=== PATIENT | male | born 1985 | race Caucasian/White ===

== ENCOUNTER 2024-08-29 07:41 | Inpatient (IN) | payer OTHER ==
[~2024-08-29] VITALS: Ht 180.3 cm; Wt 66.8 kg
[2024-08-29] MEDS: IV NS 0.9% 1,000 ML BAG IV ONE (08:40)
[2024-08-29] MEDS: PIPERACILLIN /TAZOBACTAM 3.375 G in IV D5W 50 ML IV ONE (08:42)
[2024-08-29 08:52] LABS: PLATELET COUNT (AUTO) 682 K/uL (150-450); RED BLOOD CELL COUNT(AUTO) 3.68 MIL/uL (4.5-6.0); RED CELL DISTRIBUTION WIDTH 12.6 % (11.5-15.0); WHITE BLOOD COUNT (AUTO) 16.1 K/uL (4.3-11.0)
[2024-08-29 09:08] LABS: LACTIC ACID 1.5 mmol/L (0.4-2.0)
[2024-08-29 09:09] LABS: INR 1.01 (0.91-1.10)
[2024-08-29] MEDS ORDERED: IBUP-1955 PO (09:09)
[2024-08-29] MEDS ORDERED: ACET-1951 PO (09:09)
[2024-08-29 09:15] LABS: CALCIUM, SERUM 8.9 mg/dL (8.5-10.1); CREATININE 0.7 mg/dL (0.6-1.3); SODIUM SERUM 128.0 mmol/L (136-145); UREA NITROGEN, BLOOD 6.0 mg/dL (7-18)
[2024-08-29] MEDS: VANCOMYCIN 1 GM in IV D5W 250 ML IV ONE (09:50)
[2024-08-29 10:03] LABS: APPEARANCE,URINE CLEAR (CLEAR); BLOOD, URINE NEGATIVE Ery/uL (NEGATIVE); LEUKOCYTE ESTERASE ,URINE NEGATIVE (NEGATIVE); NITRITE, URINE NEGATIVE (NEGATIVE); UGLUCOSE 3+ mg/dL (NEGATIVE)
[2024-08-29 10:09] LABS: ADD URINE CULTURE NO; SQUAMOUS EPITHELIAL CELL,UR None Seen /HPF (None Seen)
[2024-08-29] MEDS ORDERED: MAGNESIUM HYDROXIDE 30 ML UDC PO PRN (11:30)
[2024-08-29] MEDS ORDERED: Z GUARD REMEDY 4 OZ OINT TP PRN (11:30)
[2024-08-29] MEDS ORDERED: DOSING PER PHARMACY-VANCOMYCIN IV XX PRN (11:30)
[2024-08-29] MEDS ORDERED: DEXTROSE 50%-WATER 50 ML DISP.SYRIN IV PRN ×3 (11:30→22:30)
[2024-08-29] MEDS ORDERED: DOSING PER PHARMACY-ZOSYN IV 1 EA EA XX PRN (11:30)
[2024-08-29] MEDS: BLOOD SUGAR DIAGNOSTIC 1 EACH STRIP IN SCH ×2 (11:54→22:36)
[2024-08-29] MEDS: INSULIN REGULAR, HUMAN 100 UNIT/ML 3 ML VIAL SQ PRN (11:56)
[2024-08-29] MEDS: INSULIN GLARGINE, 100 UNIT/ML CARTRIDGE SQ SCH ×2 (12:04→22:37)
[2024-08-29 12:32] LABS: ASPARTATE AMINOTRANSFERASE 12.0 U/L (15-37); TOTAL PROTEIN, SERUM 7.8 g/dL (6.4-8.2)
[2024-08-29] MEDS: ZOSYN IVPB 3.375 G in IV D5W 50ml IV SCH (13:50)
[2024-08-29] MEDS: IV NS 0.9% 1,000 ML IV PRN (13:55)
[2024-08-29] MEDS: ONDANSETRON HCL/PF 4 MG/2 ML VIAL IVP PRN (15:35)
[2024-08-29 16:13] VITALS: BP 115/82; TEMP 99.9; O2SAT 99
[2024-08-29] MEDS ORDERED: CT SWABBABLE VALVE TRANS SET 1 EA INFUS.SET MC ONE (16:42)
[2024-08-29] MEDS ORDERED: IOHEXOL-300 100 ML VIAL IV ONE (16:42)
[2024-08-29] MEDS ORDERED: IV NS 0.9% 250 ML IV ONE (16:42)
[2024-08-29] MEDS ORDERED: INSULIN REGULAR, HUMAN 100 UNIT/ML 3 ML VIAL SQ PRN (18:00)
[2024-08-29] MEDS ORDERED: *INSULIN REGULAR(HUMULIN R)HUM 100 UNIT/ML VIAL SQ PRN (18:00)
[2024-08-29] MEDS: VANCOMYCIN HCL 1.25 GM in IV D5W 250 ML IV SCH (18:42)
[2024-08-29] MEDS: INSULIN REGULAR, HUMAN 100 UNIT/ML 10 ML VIAL SQ ONE (18:45)
[2024-08-29] MEDS: MAG HYDROX/AL HYDROX/SIMETH 30 ML UDC PO PRN (19:28)
[2024-08-29] MEDS: ACETAMINOPHEN 325 MG TABLET PO PRN (20:13)
[2024-08-29] MEDS ORDERED: LIDOCAINE 1%-EPI 1:100,000 20 ML VIAL ONE (20:48)
[2024-08-29] MEDS: HYDROMORPHONE INJ 2 MG/ML DISP.SYRIN IV ONE (21:38)
[2024-08-29] MEDS ORDERED: BLOOD SUGAR DIAGNOSTIC 1 EACH STRIP VI SCH (22:00)
[2024-08-29] MEDS: *INSULIN REGULAR(HUMULIN R)HUM 100 UNIT/ML VIAL SQ PRN (22:39)
[2024-08-30] MEDS: INSULIN REGULAR, HUMAN 100 UNIT/ML 10 ML VIAL SQ SCH ×3 (06:29→17:07)
[2024-08-30 07:18] LABS: PLATELET COUNT (AUTO) 634 K/uL (150-450); RED BLOOD CELL COUNT(AUTO) 3.27 MIL/uL (4.5-6.0); RED CELL DISTRIBUTION WIDTH 12.6 % (11.5-15.0); WHITE BLOOD COUNT (AUTO) 12.9 K/uL (4.3-11.0)
[2024-08-30 07:41] LABS: CALCIUM, SERUM 8.0 mg/dL (8.5-10.1); CREATININE 0.4 mg/dL (0.6-1.3); PHOSPHORUS 2.4 mg/dL (2.5-4.9); SODIUM SERUM 131.0 mmol/L (136-145); UREA NITROGEN, BLOOD 5.0 mg/dL (7-18)
[2024-08-30 08:00] VITALS: BP 100/67; TEMP 99.3; O2SAT 98
[2024-08-30 08:31] LABS: LDL 45.0 mg/dL (0-99)
[2024-08-30] MEDS: HYDROCODONE/APAP 5/325MG TABLET PO PRN (11:29)
[2024-08-30] MEDS: INSULIN REGULAR, HUMAN 100 UNIT/ML 3 ML VIAL SQ PRN (11:50)
[2024-08-30] MEDS: INSULIN REGULAR, HUMAN 100 UNIT/ML 10 ML VIAL SQ ONE (15:16)
[2024-08-30 16:00] VITALS: BP 100/68; TEMP 98.2; O2SAT 94
[2024-08-30] MEDS: K PHOS NEUTRAL 250 MG TABLET PO ONE (16:11)
[2024-08-30 20:00] VITALS: BP 101/72; TEMP 98.2; O2SAT 100
[2024-08-31] MEDS: HYDROCODONE/APAP 10/325MG TABLET PO PRN (02:18)
[2024-08-31 06:45] LABS: PLATELET COUNT (AUTO) 627 K/uL (150-450); RED BLOOD CELL COUNT(AUTO) 3.27 MIL/uL (4.5-6.0); RED CELL DISTRIBUTION WIDTH 12.5 % (11.5-15.0); WHITE BLOOD COUNT (AUTO) 7.6 K/uL (4.3-11.0)
[2024-08-31 07:01] LABS: CALCIUM, SERUM 8.1 mg/dL (8.5-10.1); CREATININE 0.6 mg/dL (0.6-1.3); PHOSPHORUS 3.8 mg/dL (2.5-4.9); SODIUM SERUM 134.0 mmol/L (136-145); UREA NITROGEN, BLOOD 7.0 mg/dL (7-18)
[2024-08-31 07:30] VITALS: BP 102/68; TEMP 98.1; O2SAT 98
[2024-08-31] MEDS ORDERED: IOHEXOL-300 100 ML VIAL IV ONE (14:08)
[2024-08-31] MEDS ORDERED: IV NS 0.9% 250 ML IV ONE (14:08)
[2024-08-31 20:00] VITALS: BP 106/74; TEMP 98.2; O2SAT 97
[2024-08-31 20:28] VITALS: BP 106/74; TEMP 98.2; O2SAT 97
[2024-08-31] MEDS: MUPIROCIN OINT 2% 22 GM TUBE TP SCH (21:30)
[2024-09-01 07:07] LABS: CALCIUM, SERUM 8.3 mg/dL (8.5-10.1); CREATININE 0.6 mg/dL (0.6-1.3); PHOSPHORUS 3.5 mg/dL (2.5-4.9); SODIUM SERUM 132.0 mmol/L (136-145); UREA NITROGEN, BLOOD 9.0 mg/dL (7-18)
[2024-09-01 08:00] VITALS: BP 104/72; TEMP 97.7; O2SAT 98
[2024-09-01] MEDS ORDERED: METF-440 PO (13:01)
[2024-09-01] MEDS ORDERED: GLIP5TAB13 PO (13:01)
[2024-09-01 16:00] VITALS: BP 112/78; TEMP 97.9; O2SAT 99
[2024-09-01 20:00] VITALS: BP 111/75; TEMP 98.8; O2SAT 98
[2024-09-02 07:00] VITALS: BP 109/71; TEMP 98.1; O2SAT 98
[2024-09-02 07:55] LABS: CALCIUM, SERUM 8.6 mg/dL (8.5-10.1); CREATININE 0.7 mg/dL (0.6-1.3); SODIUM SERUM 131.0 mmol/L (136-145); UREA NITROGEN, BLOOD 13.0 mg/dL (7-18)
[2024-09-02] MEDS: SODIUM CHLORIDE 1000 MG TABLET PO SCH (09:38)
[2024-09-02] MEDS: METFORMIN 500 MG TABLET PO SCH (14:08)
[2024-09-02 16:00] VITALS: BP 113/70; TEMP 98.6; O2SAT 96
[2024-09-02] MEDS: VANCOMYCIN 1 GM in IV D5W 250ml IV SCH (17:55)
[2024-09-02 20:33] VITALS: BP 120/75; TEMP 98.4; O2SAT 98
[2024-09-03 07:53] LABS: CALCIUM, SERUM 8.8 mg/dL (8.5-10.1); CREATININE 0.7 mg/dL (0.6-1.3); SODIUM SERUM 131.0 mmol/L (136-145); UREA NITROGEN, BLOOD 13.0 mg/dL (7-18)
[2024-09-03 08:00] VITALS: BP 108/70; TEMP 98.3; O2SAT 100
[2024-09-03 20:00] VITALS: BP 118/77; TEMP 98.4; O2SAT 98
[2024-09-04 07:39] LABS: ASPARTATE AMINOTRANSFERASE 22.0 U/L (15-37); CALCIUM, SERUM 8.5 mg/dL (8.5-10.1); PHOSPHORUS 3.2 mg/dL (2.5-4.9); SODIUM SERUM 130.0 mmol/L (136-145); TOTAL PROTEIN, SERUM 7.3 g/dL (6.4-8.2); UREA NITROGEN, BLOOD 15.0 mg/dL (7-18)
[2024-09-04 07:49] LABS: CREATININE 0.5 mg/dL (0.6-1.3)
[2024-09-04 08:00] VITALS: BP 105/74; TEMP 97.5; O2SAT 100
[2024-09-04 08:27] LABS: PLATELET COUNT (AUTO) 668 K/uL (150-450); RED BLOOD CELL COUNT(AUTO) 3.74 MIL/uL (4.5-6.0); RED CELL DISTRIBUTION WIDTH 13.3 % (11.5-15.0); WHITE BLOOD COUNT (AUTO) 7.4 K/uL (4.3-11.0)
[2024-09-04] MEDS: SODIUM CHLORIDE 1000 MG TABLET PO SCH (09:19)
[2024-09-04] MEDS: ENSURE ENLIVE 237 ML LIQUID (VANILLA) PO SCH (11:31)
[2024-09-04] MEDS ORDERED: DOXY100C2 PO (13:18)
[2024-09-04] MEDS ORDERED: AMOX-430 PO (13:18)
[2024-09-04] MEDS ORDERED: VANCOMYCIN HCL 1.25 GM in IV D5W 250 ML IV SCH (18:00)
[2024-09-05] MEDS ORDERED: ENSURE ENLIVE 237 ML LIQUID (VANILLA) PO SCH (09:00)
== END 2024-09-04 18:34 | disposition home health service (06) | DRG 720 ==
LOC: ER 07:41 → MED 10:23
PROVIDERS: ADMIT Nurse Practitioner Acute Care
PROC: 0W980ZZ Drainage of Chest Wall, Open Approach (ICD-10-PCS; principal; 2024-08-29)
DX: A41.9 Sepsis, unspecified organism (principal); G93.40 Encephalopathy, unspecified; E11.10 Type 2 diabetes mellitus with ketoacidosis without coma; E22.2 Syndrome of inappropriate secretion of antidiuretic hormone; L89.159 Pressure ulcer of sacral region, unspecified stage; D75.839 Thrombocytosis, unspecified; E11.65 Type 2 diabetes mellitus with hyperglycemia; K61.1 Rectal abscess; E86.0 Dehydration; L02.213 Cutaneous abscess of chest wall; L03.313 Cellulitis of chest wall; L03.112 Cellulitis of left axilla; Z59.00 Homelessness unspecified; Z79.4 Long term (current) use of insulin; F20.9 Schizophrenia, unspecified; F19.10 Other psychoactive substance abuse, uncomplicated; Z72.0 Tobacco use; R65.20 Severe sepsis without septic shock; E86.1 Hypovolemia; Z79.84 Long term (current) use of oral hypoglycemic drugs; Z22.322 Carrier or suspected carrier of Methicillin resistant Staphylococcus aureus; R41.9 Unspecified symptoms and signs involving cognitive functions and awareness
CPT/HCPCS: 36415; 71045-TC; 71260-TC; 80048-TC; 80053-TC; 80061-TC; 80076-TC; 80202-TC; 81001; 82962-TC; 83605-TC; 83735-TC; 83935-TC; 84100-TC; 84300-TC; 84443-TC; 84550-TC; 85025-TC; 85730-TC; 87040-TC; 87081-TC; 87086-TC; 93307-TC; 97110-TC; 97116-TC; 97530-TC; 98960; A4223; A6253; A6403; A6407; G0378; J1171; J1815; J2543; J3373; J3490; J7030; J7050; J7060; Q9967